=== PATIENT | female | born 1960 | race Caucasian/White ===

== ENCOUNTER 2018-10-25 14:14 | Emergency (ER) | payer OTHER ==
--- NOTE | 2018-10-25 15:08 | EDPHY ---
H & P Stated Complaint: cellulitis on left abdomen, started as blister - Personal History Current Tetanus/Diphtheria Vaccine: No Current Tetanus Diphtheria and Acellular Pertussis (TDAP): No - Medical/Surgical History Hx Asthma: Yes Hx Chronic Respiratory Disease: No Hx Diabetes: No Hx Cardiac Disease: No Hx Renal Disease: No Hx Cirrhosis: No Hx Alcoholism: No Hx HIV/AIDS: No Hx Splenectomy or Spleen Trauma: No - Social History Smoking Status: Never smoked Time Seen by Provider: 10/25/18 14:43 HPI/ROS: CHIEF COMPLAINT: "I have an infection on my abdomen" HISTORY OF PRESENT ILLNESS: 58-year-old immunocompetent female developed a blister on her left periumbilical region a few days ago and notes progressive erythema, induration increased warmth for the past 2 days. She initially had felt febrile 3 days ago however states that she is now feeling progressively improved overall with the exception of the localized erythema and pain. She saw her primary care provider today who started her on Keflex recommend she go to the ER for evaluation and ultrasound for possible abdominal wall abscess. The patient's tetanus is out-of-date. The patient denies: Deep abdominal pain , nausea, vomiting, fever, chills, flu-like symptoms, myalgias. PRIMARY CARE PROVIDER: REVIEW OF SYSTEMS: 10 systems reviewed and negative with the exception of the elements mentioned in the history of present illness PAST MEDICAL & SURGICAL HISTORY: No pertinent medical or surgical history . Tetanus out-of-date SOCIAL HISTORY: Nonsmoker PHYSICAL EXAM (Prior to examination, patient consented to physical exam, hands were washed and my usual and customary physical exam procedures followed) 1) GENERAL: Well-developed, well-nourished, alert and oriented. Appears to be in no acute distress. 2) HEAD: Normocephalic, atraumatic 3) HEENT: Pupils equal, round, reactive to light bilaterally. Sclera anicteric. 4) NECK: Full range of motion, no meningeal signs. 5) LUNGS: Clear auscultation bilaterally, no wheezes, no rhonchi, no retractions. 6) HEART: Regular rate and rhythm, no murmur, no heave, no gallop. 7) ABDOMEN: On the patient's abdominal wall extending from the umbilicus left lateral she has erythema, induration, increased warmth consistent with cellulitis. There is a central lesion with fluctuance appreciated. There is no extension to the back, non dermatomal distribution. No vesicles. No definitive drainage. Otherwise, no abdominal pain, no focal tenderness, negative McBurney's, negative Hobbs's, negative Rovsing's, negative peritoneal sign], 8) MUSCULOSKELETAL: Moving all extremities, no focal areas of tenderness, no obvious trauma. No peripheral edema or discoloration. 9) BACK: No CVA tenderness, no midline vertebral tenderness, no fluctuance, no step-off, no obvious trauma, no visual or palpable abnormality. 10) SKIN: No rash, no petechiae. 11) Psychiatric: Patient is oriented X 3, there is no agitation. DIFFERENTIAL DIAGNOSIS: In no particular order including but not limited to zoster, cellulitis, abdominal wall abscess , necrotizing fasciitis (Chaya Ortiz) Constitutional: Initial Vital Signs Temperature (C) 36.7 C 10/25/18 14:16 Heart Rate 79 10/25/18 14:16 Respiratory Rate 14 10/25/18 14:16 Blood Pressure 124/81 H 10/25/18 14:16 O2 Sat (%) 99 10/25/18 14:16 O2 Delivery Mode Room Air Allergies/Adverse Reactions: Penicillins Allergy (Verified 10/25/18 14:16) Home Medications: Medication Instructions Recorded Doxycycline Hyclate 100 mg PO BID #14 capsule 10/25/18 Medical Decision Making - Diagnostics Imaging Results: Imaging Impressions Abdomen Ultrasound 10/25/18 15:04 Impression: 1. Complexed mixed echogenicity collection left periumbilical location with possible communication to the skin suspicious for abscess collection versus hematoma. Findings discussed with Chaya Ortiz PAC at 15:45 hour, 10/25/2018. Images reviewed by myself (Chaya Ortiz) Procedures: Procedure: Abscess drainage. I reviewed the imaging results interpreted by staff radiologist. The patient's abscess was located on the abdominal wall. I obtained verbal consent from the patient to drain the abscess who was informed about the possibility of bleeding and pain. The abscess was incised with a scalpel and a minimal amount of purulent drainage was expressed. I irrigated the wound The patient tolerated the procedure well. The procedure was performed by myself. Culture obtained. Careful attention was placed to anatomic landmarks ensuring to only stay in the abdominal wall (Chaya Ortiz) ED Course/Re-evaluation: Patient was re-evaluated with serial examinations. On ultrasound she was noted to have a small pocket which was further opened by myself with minimal discharge. The extent of erythema has been outlined by myself. I do not think her lesions are consistent with zoster. She does appear to have a a lesion lateral to the umbilicus which is likely the nidus of her infection. I have recommended hospital admission for her cellulitis to her abdominal wall. However, patient declines this stating that she overall feels very well would like to attempt a trial of outpatient therapy. She has a penicillin and cephalosporin allergy. I am starting the patient on oral doxycycline. I believe the patient to have decision-making capacity. Provided usual and customary abdominal precautions instructions. Care of patient under supervision of secondary supervising physician Dr Casas . (Chaya Ortiz Nicole) - Data Points Laboratory Results: Laboratory Results 10/25/18 15:15 10/25/18 15:15 10/25/18 10/25/18 15:15 15:15 WBC 7.02 10^3/uL 10^3/uL (3.80-9.50) RBC 4.18 10^6/uL 10^6/uL (4.18-5.33) Hgb 13.4 g/dL g/dL (12.6-16.3) Hct 40.1 % % (38.0-47.0) MCV 95.9 fL fL (81.5-99.8) MCH 32.1 pg pg (27.9-34.1) MCHC 33.4 g/dL g/dL (32.4-36.7) RDW 12.2 % % (11.5-15.2) Plt Count 177 10^3/uL 10^3/uL (150-400) MPV 12.3 fL H fL (8.7-11.7) Neut % (Auto) 67.6 % % (39.3-74.2) Lymph % (Auto) 21.7 % % (15.0-45.0) Emmet % (Auto) 8.1 % % (4.5-13.0) Eos % (Auto) 1.4 % % (0.6-7.6) Baso % (Auto) 0.6 % % (0.3-1.7) Nucleat RBC Rel Count 0.0 % % (0.0-0.2) Absolute Neuts (auto) 4.75 10^3/uL 10^3/uL (1.70-6.50) Absolute Lymphs (auto) 1.52 10^3/uL 10^3/uL (1.00-3.00) Absolute Monos (auto) 0.57 10^3/uL 10^3/uL (0.30-0.80) Absolute Eos (auto) 0.10 10^3/uL 10^3/uL (0.03-0.40) Absolute Basos (auto) 0.04 10^3/uL 10^3/uL (0.02-0.10) Absolute Nucleated RBC 0.00 10^3/uL 10^3/uL (0-0.01) Immature Gran % 0.6 % % (0.0-1.1) Immature Gran # 0.04 10^3/uL 10^3/uL (0.00-0.10) Sodium 140 mEq/L mEq/L (135-145) Potassium 3.8 mEq/L mEq/L (3.5-5.2) Chloride 106 mEq/L mEq/L (97-110) Carbon Dioxide 25 mEq/l mEq/l (22-31) Anion Gap 9 mEq/L mEq/L (6-14) BUN 11 mg/dL mg/dL (7-23) Creatinine 0.6 mg/dL mg/dL (0.6-1.0) Estimated GFR > 60 Glucose 98 mg/dL mg/dL (70-100) Calcium 8.8 mg/dL mg/dL (8.5-10.4) Medications Given: Discontinued Medications Doxycycline Hyclate (Doxycycline Hyclate) 100 mg PO EDNOW ONE PRN Reason: Protocol Stop: 10/25/18 16:09 Last Admin: 10/25/18 16:28 Dose: 100 mg Cefazolin Sodium/Dextrose (Ancef 1 Gm (Premix)) 50 mls @ 200 mls/hr IV EDNOW ONE PRN Reason: Protocol Stop: 10/25/18 15:18 Last Admin: 10/25/18 15:26 Dose: Not Given Departure - Departure Disposition: Home, Routine, Self-Care Clinical Impression: Cellulitis, abdominal wall Condition: Good Instructions: Cellulitis (ED) Additional Instructions: If you develop fevers, flu-like symptoms, worsening of the redness beyond the outlined area, return to the emergency department for re-evaluation. Referrals: Trisha Barrett MD [Primary Care Provider] - 10/28/18 Prescriptions: Doxycycline Hyclate 100 mg PO BID #14 capsule
[2018-10-25 15:29] LABS: PLATELET COUNT 177 10^3/uL (150-400)
[2018-10-25] MEDS ORDERED: DOXYCYCLINE HYCLATE 100 MG CAP/TAB PO ONE (16:08)
[2018-10-25 16:31] VITALS: BP 112/66
== END 2018-10-25 16:39 | disposition home or self-care (01) ==
PROC: 0H97XZZ Drainage of Abdomen Skin, External Approach (ICD-10-PCS; principal; 2018-10-25)
DX: L03.311 Cellulitis of abdominal wall (principal)
CPT/HCPCS: J0690